=== PATIENT | male | born 2000 | race Caucasian/White ===

== ENCOUNTER 2024-10-02 00:54 | Emergency (ER) | payer MEDICAID ==
[~2024-10-02] VITALS: Ht 182.9 cm; Wt 93.2 kg
[2024-10-02] MEDS ORDERED: ALBU8HFA INH (02:13)
[2024-10-02] MEDS ORDERED: PRED20TA PO (02:13)
[2024-10-02 02:25] VITALS: PULSE 86; RESP 16; O2SAT 96
[2024-10-02] MEDS: ipratropium/albuterol 3ml nebule NEB ONE (02:25)
[2024-10-02 02:30] VITALS: PULSE 87; RESP 16; O2SAT 97
[2024-10-02 02:55] VITALS: BP 105/63; PULSE 77; RESP 14; TEMP 98.9; O2SAT 96
[2024-10-02] MEDS: dexamethasone 4mg tablet PO ONE (02:55)
== END 2024-10-02 02:57 | disposition home or self-care (01) ==
LOC: ER 00:55
DX: J45.901 Unspecified asthma with (acute) exacerbation (principal); F12.90 Cannabis use, unspecified, uncomplicated; Z79.899 Other long term (current) drug therapy; Z79.52 Long term (current) use of systemic steroids
CPT/HCPCS: 94640; 94760; 99283